=== PATIENT | male | born 1990 | race Two or more races ===

== ENCOUNTER 2024-03-21 02:56 | Emergency (ER) | payer MEDICAID, SELFPAY ==
[2024-03-21 02:57] VITALS: BMI 32.5
[2024-03-21 03:49] VITALS: BP 180/115; PULSE 110; RESP 18; TEMP 36.6; O2SAT 98
--- NOTE | 2024-03-21 04:02 | EDNOTE_ITS ---
<Statement entered by Chrissie Johnson MD - 03/31/24 11:50> As co-signing physician, I was present and available for consult prn. I concur with the plan and care as documented by the midlevel provider. ED Skin Abcess FB-RME/HPI General Chief complaint: Skin/Abscess/Foreign Body Stated complaint: NOSE SWELLING AND PAIN Time Seen by Provider: 03/21/24 03:56 Source: patient Arrival date/time: 03/21/24 02:56 33-year-old male presents emergency department complaining of redness to tip of nose and localized redness and edema to the left thigh that is been ongoing for 3 days. Patient [place] any fever, chills, nausea vomiting, diarrhea, or any other associated symptom. Mode of arrival: ambulatory Limitations: no limitations Related Data Previous Rx's ?Medication ?Instructions ?Recorded IBU 800 mg tablet (ibuprofen) 800 mg PO Q6H PRN pain #30 tabs 01/21/21 hydrocodone 5 mg-acetaminophen 325 1 tab PO Q8H PRN pain #10 tabs 01/21/21 mg tablet cyclobenzaprine 10 mg tablet 10 mg PO TID PRN muscle spasm #20 03/02/21 tabs ibuprofen 800 mg tablet 800 mg PO TID PRN pain #30 tabs 03/02/21 ofloxacin 0.3 % eye drops 1 drp ophthalmic (eye) QID #5 mL 03/05/23 clindamycin HCl 150 mg capsule 450 mg (3 x 150 mg) PO TID 7 days 03/21/24 #63 caps ibuprofen 600 mg tablet 600 mg PO Q8H PRN pain #20 tabs 03/21/24 Allergies Allergy/AdvReac Type Severity Reaction Status Date / Time No Known Allergies Allergy Verified 03/21/24 02:59 Review of Systems Review of Systems Systems Reviewed: All systems reviewed, normal except as documented Constitutional Constitutional: Reports system reviewed and no additional complaints, except as documented, Denies body ache(s), Denies chills and Denies fever(s) Eyes Eyes: Reports system reviewed and no additional complaints, except as documented and Denies change in vision ENT Ears, Nose, Mouth, and Throat: Reports system reviewed and no additional complaints, except as documented, Denies disequilibrium, Denies dizziness, Denies sore throat, Denies vertigo and Reports other (Redness to nose) Cardiovascular Cardiovascular: Reports system reviewed and no additional complaints, except as documented, Denies chest pain and Denies dyspnea Respiratory Respiratory: Reports system reviewed and no additional complaints, except as documented, Denies chest congestion, Denies cough and Denies dyspnea Gastrointestinal Gastrointestinal: Reports system reviewed and no additional complaints, except as documented, Denies abdominal pain, Denies nausea and Denies vomiting Musculoskeletal Musculoskeletal: Reports system reviewed and no additional complaints, except as documented, Denies abnormal gait and Denies arthralgias Integumentary/Breasts Skin/Breast: Reports system reviewed and no additional complaints, except as documented, Reports erythema, Denies rash and Reports wounds Neurologic Neurologic: Reports system reviewed and no additional complaints, except as documented, Denies abnormal gait, Denies disequilibrium, Denies dizziness and Denies vertigo Past Medical History Past Medical History NEUROLOGIC: Negative Seizures CARDIAC: Negative Cardiac Disorders or Congestive Heart Failure RESPIRATORY: Negative Chronic Obstructive Pulmonary Disease (COPD) or Asthma GENITOURINARY: Negative Renal Disease ENDOCRINE: Negative Diabetes Mellitus Type 1 or Diabetes Mellitus Type 2 HEMATOLOGIC: Negative Sickle Cell Disease OTHER HISTORY: Negative Blood Transfusions, Blood Transfusion Reaction or Anesthesia Reactions Social History SMOKING STATUS: Current every day smoker ED Exam General Limitations: Present no limitations General appearance: Present alert and in no apparent distress Head Head exam: Present atraumatic Expanded Head Exam Head image: 2 1. Redness and tenderness tip of nose Eye Eye exam: Present normal appearance, PERRL and EOMI ENT ENT exam: Present normal exam, normal oropharynx and mucous membranes moist Neck Neck exam: Present normal inspection, full ROM and trachea midline Chest Chest inspection: Present normal inspection and symmetric chest wall rise Respiratory Respiratory exam: Present normal lung sounds bilaterally Cardiovascular Cardiovascular exam: Present regular rate, normal rhythm and normal heart sounds Abdominal Exam Abdominal exam: Present soft and normal bowel sounds Extremities Exam Extremities exam: Present normal inspection and full ROM Back Exam Back exam: Present normal inspection and full ROM Neurological Exam Neurological exam: Present alert, oriented X3 and CN II-XII intact Psychiatric Psychiatric exam: Present normal affect and normal mood Skin Skin exam: Present warm, dry, intact and normal color Expanded Skin Exam Body image: 2 1. Localized erythema and tenderness no obvious abscess or drainage. Course Quality Measures none Orders Category Date Time Status cefTRIAXone [Rocephin] 1,000 mg Med 03/21/24 04:03 Discontinued Lidocaine 1% 20 ml [Xylocaine 1% 20 ML] 2.1 ml IM X1 Vital Signs Vital signs: Vital Signs Temperature 98 F 03/21/24 03:49 Pulse Rate 110 H 03/21/24 03:49 Respiratory Rate 18 03/21/24 03:49 Blood Pressure 180/115 H 03/21/24 03:49 Pulse Oximetry (%) 98 03/21/24 03:49 Oxygen Delivery Method Room Air 03/21/24 03:49 98% room air within normal limits Skin / Abscess / Foreign Body MDM Narrative MDM Narrative:: 33-year-old male presents emergency department complaining of redness to tip of nose and localized redness and edema to the left thigh that is been ongoing for 3 days. Patient Nuys any fever, chills, nausea vomiting, diarrhea, or any other associated symptom. On exam patient likely has some cellulitis to left thigh possible skin infection to tip of nose could be underlying ingrown pimple. More concerning is the localized erythema to thigh for which patient was given IM Rocephin and discharged on clindamycin. Instructed to have close follow-up with primary care provider and return to emergency department for any worsening symptoms or as needed for Patient data External records reviewed:: [facility] previous records Clinical information provided by:: patient Social determinants that could affect healthcare access:: none Patient has the following chronic illnesses:: See chart How is presenting disease/condition affected by chronic disease/condition?: u neffected by Evaluation data The following diagnostics were reviewed and interpreted by me:: other (specify) (Not applicable) Lab and/or radiology exams considered but not ordered:: Not applicable Interpretation Summary: Not applicable Medications / Prescriptions Medications or Prescriptions considered but not ordered:: Ordered Medication administrations:: Medication Administration History Discontinued Medications Ceftriaxone Sodium 1,000 mg/ (Lidocaine HCl 2.1 ml) 0 mg IM X1 ONE Stop: 03/21/24 04:04 Last Admin: 03/21/24 04:19 Dose: 1,000 mg Documented By: DB Given Consultations Consultation(s) initiated? (list below): No Diagnosis Skin/Abscess Differential Diagnosis: abscess of skin or subcutaneous tissue, urticaria, allergic reaction to drug, cellulitis, eczema, insect bites and contact dermatitis Most likely diagnosis given after review of the tests above:: Cellulitis Admission Indicated Admission indicated?: not indicated Admission Request Was there a request for admission?: No Disposition Plan Disposition Plan: Discharge Discharge Attestation Discharge Attestation: The patient and all family members were given an opportunity to ask questions and understood the discharge instructions. Discharge instructions specifically effects, indications for sooner follow up or return to the emergency department, and the expected course of current diagnosis. Patient condition: Stable Discharge Plan Plan Patient Disposition: HOME (Self Care) Disposition Comment: Stable Prescriptions/Referrals Prescriptions/Med Rec: New clindamycin HCl 150 mg capsule 450 mg PO TID 7 Days Qty: 63 0RF ibuprofen 600 mg tablet 600 mg PO Q8H PRN (Reason: pain) Qty: 20 0RF No Action ibuprofen [IBU] 800 mg tablet 800 mg PO Q6H PRN (Reason: pain) Qty: 30 0RF hydrocodone-acetaminophen 5-325 mg tablet 1 tab PO Q8H MDD 3 a day PRN (Reason: pain) Qty: 10 0RF ibuprofen 800 mg tablet 800 mg PO TID PRN (Reason: pain) Qty: 30 0RF cyclobenzaprine 10 mg tablet 10 mg PO TID PRN (Reason: muscle spasm) Qty: 20 0RF ofloxacin 0.3 % drops 1 drp ophthalmic (eye) QID Qty: 5 0RF Problem List Clinical Impression: Cellulitis of left thigh Patient/Caregiver Discharge Instructions Discharge Activity: activity as tolerated Education Materials: Discharge Instructions for Cellulitis, ED Cellulitis Additional Instructions: Take antibiotics as prescribed. Close follow-up with primary care provider in 2 to 3 days. Return to the emergency department immediately for any worsening signs of infection or as needed. Print Language: Faroese Stand Alone Forms: Kyra Award Info., Patient Portal Info Letter PA/ESTELLE Supervising Physician JUAN/ESTELLE Supervising Physician: Dr. Johnson
[2024-03-21] MEDS: cefTRIAXone 1,000 MG, LIDOCAINE 1% 20 ML 2.1 ML IM (04:19)
== END 2024-03-21 04:23 | disposition home or self-care (01) ==
LOC: SERX 04:15
PROVIDERS: Emergency Provider Emergency Medicine; PCP Family Medicine
DX: L03.116 Cellulitis of left lower limb (principal)
CPT/HCPCS: 96372; 99283; J0696; J3490

== ENCOUNTER 2024-06-05 03:55 | Emergency (ER) | payer MEDICAID, SELFPAY ==
[2024-06-05 03:55] VITALS: BMI 29.5
[2024-06-05 04:03] VITALS: BP 130/85; PULSE 98; RESP 18; TEMP 36.7; O2SAT 99
--- NOTE | 2024-06-05 05:09 | EDNOTE_ITS ---
ED Skin Abcess FB-RME/HPI General Chief complaint: Skin/Abscess/Foreign Body Stated complaint: RECTAL BLEEDING Time Seen by Provider: 06/05/24 04:11 Arrival date/time: 06/05/24 03:55 33M with no significant PMH presents to ED 1 day of bright red rectal bleeding. No pain. Patient had a colonoscopy 6 years ago with diverticulosis and hemorrhoids. Limitations: no limitations Related Data Previous Rx's ?Medication ?Instructions ?Recorded IBU 800 mg tablet (ibuprofen) 800 mg PO Q6H PRN pain # 30 tabs 01/21/21 hydrocodone 5 mg-acetaminophen 325 1 tab PO Q8H PRN pa in #10 tabs 01/21/21 mg tablet cyclobenzaprine 10 mg tablet 10 mg PO TID PRN muscle s pasm #20 03/02/21 tabs ibuprofen 800 mg tablet 800 mg PO TID PRN pain #30 t abs 03/02/21 ofloxacin 0.3 % eye drops 1 drp ophthalmic (eye) QID # 5 mL 03/05/23 ibuprofen 600 mg tablet 600 mg PO Q8H PRN pain #20 t abs 03/21/24 hydrocortisone 2.5 % topical cream 1 applic IA QDAY IA N hemorrhoids 06/05/24 with perineal applicator #30 grams (Anusol-HC) Allergies Allergy/AdvReac Type Severity Reaction Status Date / Time No Known Allergies Allergy Verified 03/21/24 02:59 Review of Systems Review of Systems Systems Reviewed: All systems reviewed, normal except as documented Constitutional Constitutional: Reports system reviewed and no additional complaints, except as documented, Denies fever(s) and Denies headache(s) ENT Ears, Nose, Mouth, and Throat: Denies disequilibrium and Denies headache(s) Cardiovascular Cardiovascular: Reports system reviewed and no additional complaints, except as documented, Denies chest pain and Denies dyspnea Respiratory Respiratory: Reports system reviewed and no additional complaints, except as documented, Denies cough and Denies dyspnea Gastrointestinal Gastrointestinal: Reports system reviewed and no additional complaints, except as documented, Denies abdominal pain, Denies nausea and Denies vomiting Integumentary/Breasts Skin/Breast: Reports as per HPI and Reports other (skin bleeding) Neurologic Neurologic: Reports system reviewed and no additional complaints, except as documented, Denies confusion, Denies disequilibrium and Denies headache(s) Psychiatric Psychiatric: Denies confusion Past Medical History Past Medical History NEUROLOGIC: Negative Seizures CARDIAC: Negative Cardiac Disorders or Congestive Heart Failure RESPIRATORY: Negative Chronic Obstructive Pulmonary Disease (COPD) or Asthma GENITOURINARY: Negative Renal Disease ENDOCRINE: Negative Diabetes Mellitus Type 1 or Diabetes Mellitus Type 2 HEMATOLOGIC: Negative Sickle Cell Disease OTHER HISTORY: Negative Blood Transfusions, Blood Transfusion Reaction or An esthesia Reactions Social History SMOKING STATUS: Current every day smoker ED Exam General Limitations: Present no limitations General appearance: Present alert and in no apparent distress Head Head exam: Present atraumatic Eye Eye exam: Present normal appearance, PERRL and EOMI ENT ENT exam: Present normal exam, normal oropharynx and mucous membranes moist Neck Neck exam: Present normal inspection, full ROM and trachea midline Chest Chest inspection: Present normal inspection and symmetric chest wall rise Respiratory Respiratory exam: Present normal lung sounds bilaterally Cardiovascular Cardiovascular exam: Present regular rate, normal rhythm and normal heart sounds Abdominal Exam Abdominal exam: Present soft and normal bowel sounds Rectal Exam Rectal exam: Present hemorrhoids Extremities Exam Extremities exam: Present normal inspection and full ROM Back Exam Back exam: Present normal inspection and full ROM Neurological Exam Neurological exam: Present alert, oriented X3 and CN II-XII intact Psychiatric Psychiatric exam: Present normal affect and normal mood Skin Skin exam: Present warm, dry, intact and normal color Course Quality Measures none Vital Signs Vital signs: Vital Signs Temperature 98.0 F 06/05/24 04:03 Pulse Rate 98 06/05/24 04:03 Respiratory Rate 18 06/05/24 04:03 Blood Pressure 130/85 H 06/05/24 04:03 Pulse Oximetry (%) 99 06/05/24 04:03 Oxygen Delivery Method Room Air 06/05/24 04:03 O2 at 99% on RA and WNLs Skin / Abscess / Foreign Body MDM Narrative MDM Narrative:: 33M with no significant PMH presents to ED 1 day of bright red rectal bleeding. No pain. Patient had a colonoscopy 6 years ago with diverticulosis and hemorrhoids. Physical exam with hop trainer reveals hemorrhoids but no more active bleeding. Patient is afebrile, calm, and alert. Cream and budget counselor given. Patient data External records reviewed:: [facility] previous records Clinical information provided by:: patient Social determinants that could affect healthcare access:: none Patient has the following chronic illnesses:: none How is presenting disease/condition affected by chronic disease/condition?: no chronic disease Evaluation data The following diagnostics were reviewed and interpreted by me:: other (specify) (none) Lab and/or radiology exams considered but not ordered:: not ordered Interpretation Summary: n/a Medications / Prescriptions Medications or Prescriptions considered but not ordered:: not ordered Medication administrations:: n/a Consultations Consultation(s) initiated? (list below): No Diagnosis Skin/Abscess Differential Diagnosis: abscess of skin or subcutaneous tissue, viral exanthem, dermatophytosis, urticaria, herpes zoster, allergic reaction to drug, cellulitis, eczema, insect bites, impetigo, contact dermatitis and other (bleeding hemorrhoid) Most likely diagnosis given after review of the tests above:: bleeding hemorrhoid Admission Indicated Admission indicated?: not indicated Admission Request Was there a request for admission?: No Disposition Plan Disposition Plan: Discharge Discharge Attestation Discharge Attestation: The patient and all family members were given an opportunity to ask questions and understood the discharge instructions. Discharge instructions specifically effects, indications for sooner follow up or return to the emergency department, and the expected course of current diagnosis. Patient condition: Stable Discharge Plan Plan Patient Disposition: HOME (Self Care) Disposition Comment: Stable Prescriptions/Referrals Prescriptions/Med Rec: New hydrocortisone [Anusol-HC] 2.5 % cream with perineal applicator 1 applic IA QDAY PRN (Reason: hemorrhoids) Qty: 30 0RF No Action ibuprofen [IBU] 800 mg tablet 800 mg PO Q6H PRN (Reason: pain) Qty: 30 0RF hydrocodone-acetaminophen 5-325 mg tablet 1 tab PO Q8H MDD 3 a day PRN (Reason: pain) Qty: 10 0RF ibuprofen 800 mg tablet 800 mg PO TID PRN (Reason: pain) Qty: 30 0RF cyclobenzaprine 10 mg tablet 10 mg PO TID PRN (Reason: muscle spasm) Qty: 20 0RF ofloxacin 0.3 % drops 1 drp ophthalmic (eye) QID Qty: 5 0RF ibuprofen 600 mg tablet 600 mg PO Q8H PRN (Reason: pain) Qty: 20 0RF Problem List Clinical Impression: Bleeding hemorrhoid Patient/Caregiver Discharge Instructions Additional Instructions: Please follow-up with PCP within 24-48 hours and return immediately if symptoms worsen. If problem persists, follow-up with Dr. Gallagher. Print Language: Sinhala Stand Alone Forms: Patient Portal Info Letter PA/LIBRARY SCIENCE INSTRUCTOR Supervising Physician PA/LIBRARY SCIENCE INSTRUCTOR Supervising Physician: Dr. Warren
== END 2024-06-05 05:09 | disposition home or self-care (01) ==
LOC: SERX 04:20
PROVIDERS: Emergency Provider Emergency Medicine; PCP Family Medicine
DX: K64.9 Unspecified hemorrhoids (principal)
CPT/HCPCS: 99281